=== PATIENT | male | born 1955 | race Caucasian/White ===

== ENCOUNTER 2024-05-28 06:26 | Day surgery (SDC) | payer OTHER, SELFPAY ==
[2024-05-15 08:44] LABS: Hemoglobin 15.1 g/dL (13.0-18.0); Mean Corp Hgb Conc. 34.3 g/dL (33.0-37.0); Mean Corpuscular Hgb 31.2 pg (27.0-31.0); Mean Corpuscular Volume 90.9 fL (80.0-94.0); Mean Platelet Volume 10.3 fL (7.4-10.4); Platelet Count 272 10^3/uL (130-400); Red Blood Cell Count 4.84 10^6/uL (4.70-6.10); Red Cell Dist. Width 12.1 % (11.5-14.5); White Blood Cell Count 6.1 10^3/uL (4.8-10.8)
[2024-05-15 09:39] LABS: Blood Urea Nitrogen 22 mg/dl (9-20); Calcium 9.4 mg/dl (8.4-10.2); Carbon Dioxide 24 mmol/L (22-30); Chloride 104 mmol/L (98-107); Glucose 103 mg/dl (70-99); Potassium 4.4 mmol/L (3.5-5.1); Sodium 142 mmol/L (135-145); eGFR > 60.00
[2024-05-15 10:08] VITALS: BMI 28.6
--- NOTE | 2024-05-15 15:20 | PTCARENOTE ---
Abnormal EKG on 05/15/24. Dr. Lundberg aware. No intervention needed.
[2024-05-28] VITALS (7 sets, daily range): BP systolic 147–161; BP diastolic 82–97; BMI 28.6
[2024-05-28] MEDS: ROXICODONE 5 MG PO (12:44)
== END 2024-05-28 12:50 | disposition home or self-care (01) ==
LOC: SDS 06:26
PROVIDERS: ATTENDING PHYSICIAN Specialist; FAMILY PHYSICIAN Family Medicine
DX: N43.3 Hydrocele, unspecified (principal)
CPT/HCPCS: 55060; 36415; 80048; 85027; 93005